=== PATIENT | male | born 1970 | race Caucasian/White ===

== ENCOUNTER 2017-11-25 11:39 | Emergency (ER) | payer MEDICAID | END 2017-11-25 13:15 | disposition home or self-care (01) | LOC: D.ER 11:39 | DX: S60.222A Contusion of left hand, initial encounter (principal); W19.XXXA Unspecified fall, initial encounter; Y93.89 Activity, other specified; Y92.22 Religious institution as the place of occurrence of the external cause; M79.602 Pain in left arm ==